=== PATIENT | female | born 1955 | race Caucasian/White ===

== ENCOUNTER 2020-03-13 00:42 | Inpatient (IN) ==
[2020-03-13] MEDS ORDERED: IOPAMIDOL 100 ML BOTTLE IV ONE (00:43)
[2020-03-13] MEDS ORDERED: ONDANSETRON 4 MG/2 ML VIAL IV ONE ×2 (02:17→12:14)
[2020-03-13] MEDS ORDERED: 0.9 % SODIUM CHLORIDE 1,000 ML IV ONE (02:17)
[2020-03-13] MEDS ORDERED: morphine 2 MG/ML VIAL ONE (02:48)
[2020-03-13 03:06] LABS: Basophils # (Auto) 0.03 K/mcL (0.00-0.20); Basophils % (Auto) 0.3 % (0.0-2.0); Eosinophils # (Auto) 0.05 K/mcL (0.00-0.70); Eosinophils % (Auto) 0.5 % (0.0-7.0); Hematocrit 43.2 % (36.0-48.0); Hemoglobin 13.8 g/dL (12.0-15.0); Lymphocytes # (Auto) 0.63 K/mcL (1.50-4.80); Lymphocytes % (Auto) 5.7 % (15.0-49.0); Mean Cell Volume 91.3 fL (80.0-100.0); Mean Corpuscular HGB Conc 31.9 g/dL (31.0-36.0); Mean Platelet Volume 10.9 fL (7.4-10.4); Monocytes # (Auto) 0.69 K/mcL (0.10-0.90); Monocytes % (Auto) 6.2 % (1.0-12.0); Neutrophils % (Auto) 87.3 % (38.0-78.0); Platelet Count 179 K/mcL (140-440); RBC 4.73 M/mcL (4.00-5.20); Red Cell Distribution Width 14.4 % (11.5-14.5); WBC 11.1 K/mcL (4.5-11.0)
[2020-03-13 03:47] LABS: POC Creatinine 0.9 mg/dL (0.6-1.2)
[2020-03-13 04:09] LABS: ALT/SGPT 19 U/L (<40); AST/SGOT 22 U/L (<32); Albumin 4.2 gm/dL (3.2-5.2); Albumin/Globulin Ratio 1.6 (1.0-2.3); Alkaline Phosphatase 67 U/L (39-117); Bilirubin,Total 0.5 mg/dL (0.1-1.0); Blood Urea Nitrogen 31 mg/dL (8-23); Calcium 9.7 mg/dL (8.6-10.4); Carbon Dioxide 25 mmol/L (22-30); Chloride 97 mmol/L (96-108); Globulin 2.6 gm/dL (2.2-3.7); Glomerular Filtration Rate 53; Glucose 147 mg/dL (70-105)
[2020-03-13] MEDS ORDERED: OMEPRAZOLE 20 MG CAPSULE PO ONE (04:32)
[2020-03-13] MEDS ORDERED: morphine 2 MG/ML VIAL IV ONE (04:49)
[2020-03-13] MEDS ORDERED: PHENobarb/HYOSCY/ATROPINE/SCOP 1 DOSE BOTTLE PO ONE (05:25)
--- NOTE | 2020-03-13 10:48 | Cat Scan Report ---
CLINICAL INFORMATION: Abdominal pain and distention COMPARISON: 04/28/[address] TECHNIQUE: Following enteric contrast, 80 cc of Isovue-[id number] were injected intravenously, and 60 seconds later, 0.625 mm helical slices were obtained from the mid heart through the subtrochanteric regions. Following reconstruction, 2.5 mm sagittal, coronal and axial reformatted images were processed and reviewed at bone, lung and soft tissue windows. Five minutes later, 0.625 mm helical slices were obtained from the mid heart through the kidneys and viewed at soft tissue windows.The exam was performed using radiation dose optimization techniques including, but not limited to, automated exposure control, adjustment of the mA and/or kV according to patient size and use of iterative reconstruction technique. FINDINGS: Lung bases show only subsegmental atelectasis in both posterior lower lobes. There are no effusions. The visualized heart is normal in size. Small pericardial effusion is new from the previous remote CT. Abdominal images show the gallbladder and bile ducts are normal: CBD is 5 mm. The liver, both adrenal glands, kidneys, spleen, pancreas and aorta, including aortic branches, are normal in size, configuration and attenuation without focal lesion. There is no free air, free fluid or adenopathy. The splenic vein is chronically thrombosed quite diminutive likely fibrotic. This resulted in moderate paraesophageal, perigastric and perisplenic varices. The portal vein is normal diameter. Pelvic images show urinary bladder is unremarkable. Hysterectomy and oophorectomy changes appreciated. Subtotal colectomy changes noted with retention of the distal sigmoid and rectum. In addition, partial small bowel resection is noted with primary anastomosis is seen within the the right mid abdomen region. The stomach, duodenum and proximal jejunum are moderately dilated to a transition point in the central mesenteric cavity. Presumably, they are is adhesion or stricture at the transition point. The distal small bowel is relatively decompressed. Interestingly, the retained rectosigmoid colonic segment is moderately dilated and fluid-filled likely reflecting poor peristalsis. Incidental note: 2 cm periampullary diverticulum in the descending duodenum Severe right hip degeneration is new from remote 2008 CT. There is also moderate degenerative change in the lower lumbar spine. IMPRESSION: 1. Subtotal colectomy and partial small bowel resection. Partial distal small bowel obstruction likely related to adhesions or stricture. The residual rectosigmoid segment of colon is moderately dilated and fluid-filled which likely reflects chronic atony. 2. Small pericardial effusion - new from the remote CT. 3. 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 This has resulted in mild periesophageal, perigastric and perisplenic varices. The portal and superior mesenteric veins are normal 4. Severe right hip degeneration - new from remote CT 12 years ago Interpreted and Authenticated by: Fredis Fonseca 03/13/20
--- NOTE | 2020-03-13 11:15 | Emergency Department Note ---
Abdominal Pain HPI General Chief Complaint: Abdominal Pain Stated Complaint: ABD. PAIN Time Seen by Provider: 03/13/20 01:55 Mode of arrival: EMS Limitations: physical limitation History of Present Illness HPI Narrative: Narrative: This 65-year-old female comes in with her . She has a long history of abdominal surgeries, colitis, and has had 10 days of pain which seems to have worsened. She has been on gabapentin. She had blood in her stools a few times and today vomited several times and had flecks of blood in her emesis. She has had some off and on for quite a while with redness in her stools. gives a history beginning 33 years ago of an ovarian ruptured followed by a ruptured colon followed by diagnosis of ulcerative colitis then hysterectomy. Was placed on prednisone for 15 years along with a sick call and then ended up with a colectomy. There was some internal bleeding as well and she ended up with an ostomy with an unusual variation of anastomoses which was reconnected. He reports that she just about starved to several times before the connections were reunited. She reports that she has become swollen in these past days in her abdomen and has become quite painful. She reports not taking anything since 4 PM. She believes that she vomited and passed out and may have vomited as many as 30 or 40 times which is quite unusual for her. She also has been very shaky. She has lost some weight of recent after going down on the gabapentin dose. She had gained up to 30 pounds while on the gabapentin. She reports that her temperatures have gone up from 97.4 normal to 98.8 which is high for her. She is on chronic narcotics including long-acting and breakthrough pain medication. Related Data Home Medications Medication Instructions Recorded Confirmed amitriptyline 10 mg tablet 10 mg PO QHS tab 07/17/15 07/17/15 clonazepam 2 mg tablet 2 mg PO BID PRN 07/17/15 07/17/15 diphenoxylate-atropine 2.5 1 tab PO ONCE tab 07/17/15 07/17/15 mg-0.025 mg tablet estradiol 0.5 mg tablet 0.5 mg PO QDAY 07/17/15 07/17/15 fluoxetine 60 mg tablet 60 mg PO QDAY 07/17/15 07/17/15 hydrocortisone 5 mg tablet 10 mg PO QAM tab 07/17/15 07/17/15 hydromorphone 4 mg tablet 4 mg PO Q4H PRN 07/17/15 07/17/15 [id number] 1 cap PO ONCE PRN cap 07/17/15 07/17/15 12,000-38,000-60,000 unit capsule,delayed rel nitroglycerin 0.4 mg sublingual 0.4 mg SUBLINGUAL Q5MIN PRN 07/17/15 07/17/15 tablet omeprazole 40 mg capsule,delayed 40 mg PO QDAY 07/17/15 07/17/15 release phenazopyridine 200 mg tablet 200 mg PO BID PRN tab 07/17/15 07/17/15 sumatriptan succinate 50 mg tablet 50 mg PO Q2H 07/17/15 07/17/15 trazodone 50 mg tablet 50 mg PO TID 07/17/15 07/17/15 Allergies Allergy/AdvReac Type Severity Reaction Status Date / Time metronidazole Allergy Unknown Verified 03/13/20 03:26 tramadol Allergy Unknown Verified 03/13/20 03:26 From OXYCONTIN Allergy Severe ANAPHYLACTI Uncoded 08/30/14 12:07 C CLASS: 08:24 - SULFONAMIDES Allergy Unknown Uncoded 08/30/14 12:07 (SYSTEMIC) DIABETIC FEATURES Allergy Unknown Uncoded 08/30/14 12:07 MSG/SULFATES Allergy Unknown Uncoded 08/30/14 12:07 No to Iodine Allergy Unknown Unknown Uncoded 08/30/14 12:07 No to Latex Allergy Unknown Uncoded 08/30/14 12:07 WHEAT/OATS -SMALL AMTS OK Allergy Unknown Uncoded 08/30/14 12:07 Review of Systems ROS ROS Narrative: Narrative: Denies chills. Has had some sweating. No sore throat or runny nose No chest pain Has a little bit of cough but she attributes this to the vomiting and choking. No shortness of breath. No dysuria or frequency Has some back pain in her kidney areas it seems burning in nature Has some dizziness. Has passed out several times Has chronic anxiety and depression. 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) Ulcerative colitis (Chronic) Right shoulder pain (Chronic) Fibromyalgia (Chronic) Degenerative joint disease (Chronic) Situational anxiety (Chronic) Diarrhea (Chronic) GERD (gastroesophageal reflux disease) (Chronic) Other adrenal hypofunction (Chronic) Interstitial cystitis (Chronic) Upper respiratory infection (Chronic) halfway prescription opiate use (Chronic) Skin lesion (Chronic) Tendonitis (Chronic) Medical History (Updated 03/13/20 @ 11:32 by Fletcher Baker DO) Degenerative joint disease (Chronic) Diarrhea (Chronic) Fibromyalgia (Chronic) GERD (gastroesophageal reflux disease) (Chronic) Glaucoma (Chronic) Interstitial cystitis (Chronic) halfway prescription opiate use (Chronic) 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) Osteoporosis (Chronic) Other adrenal hypofunction (Chronic) Right shoulder pain (Chronic) Situational anxiety (Chronic) Skin lesion (Chronic) Steroid dependence (Acute) Tendonitis (Chronic) Ulcerative colitis (Chronic) Upper respiratory infection (Chronic) Surgical History (Updated 07/17/15 @ 13:38 by Heidi Reyes) No pertinent past surgical history (Acute) Family History (Updated 07/17/15 @ 13:39 by Heidi Reyes) Malignant neoplasm of colon Mother Disorder of thyroid sister Social History Smoking Status: Never smoker Exam Narrative Narrative: Narrative: General Limitations: physical limitation General appearance: Present cachectic, nontoxic and other (Other times seems to be sleepy and/or with malaise and near the edge of tears because of pain.); Absent in no apparent distress Head Head: Present atraumatic and normocephalic Eye Eye: Present normal appearance and EOMI ENT ENT: Present normal oropharynx and mucous membranes moist Neck Neck: Present trachea midline and lymphadenopathy; Absent tenderness Chest Chest: Present symmetric chest wall rise Respiratory Respiratory: Present normal lung sounds bilaterally; Absent respiratory distress, rales/crackles, stridor and prolonged expiratory phase Cardiovascular Cardiovascular: Present regular rate and normal rhythm; Absent systolic murmur and diastolic murmur Adbominal Abdominal: Present soft, distention (mild-mod) and tenderness (moderate, diffuse); Absent rigidity Extremities Extremities: Present other (dorsalis pedal pulses: trace/4 right, 2/4 left. Color of her thighs and onto some of her legs is a medium bright purple color that is diffuse, nontender, no scabs or desquamation or bullae.); Absent calf tenderness Psychiatric Psychiatric: Present depressed, flat affect, serious, tearful and pleasant; Absent poor eye contact Skin Skin: Present warm (WNL) and dry Course Vital Signs Vital signs: Vital Signs Temperature 98.1 F 03/13/20 00:42 Pulse Rate 87 03/13/20 00:42 Respiratory Rate 20 03/13/20 00:42 Blood Pressure 124/63 03/13/20 00:42 Pulse Oximetry (%) 100 03/13/20 00:42 Temperature 98.1 F 03/13/20 00:42 Pulse Rate 84 03/13/20 10:46 Respiratory Rate 20 03/13/20 00:42 Blood Pressure 104/53 03/13/20 10:46 Pulse Oximetry (%) 92 03/13/20 10:46 MDM MDM Narrative Medical decision making narrative: Narrative: With her having history of multiple abdominal surgeries and now such significant additional abdominal pain with some bloating sensation and appearance will need to do imaging plus labs. See labs below. Not particularly remarkable, including lactic acid 1.0. CT had a long delay in coming back and there was a miscommunication and the imaging department. I spoke with the radiologist and he indicates that there is a possible obstruction in the mid jejunum and would like to recommend having her take oral contrast to help delineate this better. This will take a significant additional period of time it seems like it would be worth it considering her circumstances and presentation. So I went ahead and ordered this. Due to change in shift patient's care transferred to Dr. Paul Esparza. Lab Data Result diagrams: 03/13/20 02:29 03/13/20 02:29 Labs: Lab Results 03/13/20 03/13/20 03/13/20 Range/Units 02:29 02:29 02:30 WBC 11.1 H (4.5-11.0) K/mcL RBC 4.73 (4.00-5.20) M/mcL Hgb 13.8 (12.0-15.0) g/dL Hct 43.2 (36.0-48.0) % MCV 91.3 (80.0-100.0) fL MCH 29.2 (26.0-34.0) pg MCHC 31.9 (31.0-36.0) g/dL RDW 14.4 (11.5-14.5) % Plt Count 179 (140-440) K/mcL MPV 10.9 H (7.4-10.4) fL Neut % (Auto) 87.3 H (38.0-78.0) % Lymph % (Auto) 5.7 L (15.0-49.0) % Ellis % (Auto) 6.2 (1.0-12.0) % Eos % (Auto) 0.5 (0.0-7.0) % Baso % (Auto) 0.3 (0.0-2.0) % Lymph # (Auto) 0.63 L (1.50-4.80) K/mcL Ellis # (Auto) 0.69 (0.10-0.90) K/mcL Eos # (Auto) 0.05 (0.00-0.70) K/mcL Baso # (Auto) 0.03 (0.00-0.20) K/mcL Absolute Neutrophils 9.67 H (1.80-8.00) K/mcL VBG Lactic Acid 1.0 (0.5-2.0) mmol/L Sodium 139 (133-145) mmol/L Potassium 3.8 (3.3-5.1) mmol/L Chloride 97 (96-108) mmol/L Carbon Dioxide 25 (22-30) mmol/L Anion Gap 17.0 H (8.0-16.0) BUN 31 H (8-23) mg/dL Creatinine 1.1 (0.6-1.1) mg/dL POC Creatinine (0.6-1.2) mg/dL GFR Calculation 53 Glucose 147 H (70-105) mg/dL Calcium 9.7 (8.6-10.4) mg/dL Total Bilirubin 0.5 (0.1-1.0) mg/dL AST 22 (<32) U/L ALT 19 (<40) U/L Alkaline Phosphatase 67 (39-117) U/L Troponin T (<0.03) ng/mL C-Reactive Protein 0.60 (0.03-0.80) mg/dL Total Protein 6.8 (5.9-8.4) gm/dL Albumin 4.2 (3.2-5.2) gm/dL Globulin 2.6 (2.2-3.7) gm/dL Albumin/Globulin Ratio 1.6 (1.0-2.3) Lipase 9 (7-60) U/L 03/13/20 03/13/20 Range/Units 02:30 03:11 WBC (4.5-11.0) K/mcL RBC (4.00-5.20) M/mcL Hgb (12.0-15.0) g/dL Hct (36.0-48.0) % MCV (80.0-100.0) fL MCH (26.0-34.0) pg MCHC (31.0-36.0) g/dL RDW (11.5-14.5) % Plt Count (140-440) K/mcL MPV (7.4-10.4) fL Neut % (Auto) (38.0-78.0) % Lymph % (Auto) (15.0-49.0) % Ellis % (Auto) (1.0-12.0) % Eos % (Auto) (0.0-7.0) % Baso % (Auto) (0.0-2.0) % Lymph # (Auto) (1.50-4.80) K/mcL Ellis # (Auto) (0.10-0.90) K/mcL Eos # (Auto) (0.00-0.70) K/mcL Baso # (Auto) (0.00-0.20) K/mcL Absolute Neutrophils (1.80-8.00) K/mcL VBG Lactic Acid (0.5-2.0) mmol/L Sodium (133-145) mmol/L Potassium (3.3-5.1) mmol/L Chloride (96-108) mmol/L Carbon Dioxide (22-30) mmol/L Anion Gap (8.0-16.0) BUN (8-23) mg/dL Creatinine (0.6-1.1) mg/dL POC Creatinine 0.9 (0.6-1.2) mg/dL GFR Calculation Glucose (70-105) mg/dL Calcium (8.6-10.4) mg/dL Total Bilirubin (0.1-1.0) mg/dL AST (<32) U/L ALT (<40) U/L Alkaline Phosphatase (39-117) U/L Troponin T < 0.01 (<0.03) ng/mL C-Reactive Protein (0.03-0.80) mg/dL Total Protein (5.9-8.4) gm/dL Albumin (3.2-5.2) gm/dL Globulin (2.2-3.7) gm/dL Albumin/Globulin Ratio (1.0-2.3) Lipase (7-60) U/L Discharge Plan Patient/Caregiver Discharge Instructions Pt seen by GERIATRICS PHYSICIAN/PA only: No Clinical Impression: Abdominal pain, Hematemesis, Blood in feces, termination clerk prescription opiate use, Steroid dependence Patient Disposition: Still a Patient Condition: Undetermined Follow up with: Geraldine Brandt MD [Primary Care Provider] - Prescriptions: No Action hydrocortisone 5 mg tablet 10 mg PO QAM RF: 0 trazodone 50 mg tablet 50 mg PO TID RF: 0 phenazopyridine 200 mg tablet 200 mg PO BID PRNRF: 0 sumatriptan succinate [Imitrex] 50 mg tablet 50 mg PO Q2H RF: 0 diphenoxylate-atropine [Lomotil] 2.5-0.025 mg tablet 1 tab PO ONCE RF: 0 omeprazole 40 mg capsule,delayed release(DR/EC) 40 mg PO QDAY RF: 0 amitriptyline 10 mg tablet 10 mg PO QHS RF: 0 clonazepam 2 mg tablet 2 mg PO BID PRNRF: 0 nitroglycerin [Nitrostat] 0.4 mg tablet, sublingual 0.4 mg SUBLINGUAL Q5MIN PRNRF: 0 estradiol 0.5 mg tablet 0.5 mg PO QDAY RF: 0 hydromorphone [Dilaudid] 4 mg tablet 4 mg PO Q4H PRNRF: 0 [id number] [Creon] 12,000-38,000 -60,000 unit capsule,delayed release(DR/EC) 1 cap PO ONCE PRNRF: 0 fluoxetine 60 mg tablet 60 mg PO QDAY RF: 0
[2020-03-13] MEDS ORDERED: HYDROmorphone 0.5 MG/0.5 ML SYRINGE IV ONE (12:13)
--- NOTE | 2020-03-13 13:46 | Emergency Department Note ---
Abdominal Pain HPI General Chief Complaint: Abdominal Pain Stated Complaint: ABD. PAIN Time Seen by Provider: 03/13/20 01:55 Mode of arrival: EMS Limitations: physical limitation History of Present Illness HPI Narrative: 65-year-old female with past medical history significant for multiple abdominal surgeries presenting with chief complaint of nausea vomiting. Patient seen primarily by Dr. Baker who transitioned care to fl. At time of shift change patient with pending CT scan evaluation. Related Data Home Medications Medication Instructions Recorded Confirmed amitriptyline 10 mg tablet 10 mg PO QHS tab 07/17/15 07/17/15 clonazepam 2 mg tablet 2 mg PO BID PRN 07/17/15 07/17/15 diphenoxylate-atropine 2.5 1 tab PO ONCE tab 07/17/15 07/17/15 mg-0.025 mg tablet estradiol 0.5 mg tablet 0.5 mg PO QDAY 07/17/15 07/17/15 fluoxetine 60 mg tablet 60 mg PO QDAY 07/17/15 07/17/15 hydrocortisone 5 mg tablet 10 mg PO QAM tab 07/17/15 07/17/15 hydromorphone 4 mg tablet 4 mg PO Q4H PRN 07/17/15 07/17/15 bagwrf-jpnprrru-jxwstig 1 cap PO ONCE PRN cap 07/17/15 07/17/15 12,000-38,000-60,000 unit capsule,delayed rel nitroglycerin 0.4 mg sublingual 0.4 mg SUBLINGUAL Q5MIN PRN 07/17/15 07/17/15 tablet omeprazole 40 mg capsule,delayed 40 mg PO QDAY 07/17/15 07/17/15 release phenazopyridine 200 mg tablet 200 mg PO BID PRN tab 07/17/15 07/17/15 sumatriptan succinate 50 mg tablet 50 mg PO Q2H 07/17/15 07/17/15 trazodone 50 mg tablet 50 mg PO TID 07/17/15 07/17/15 Allergies Allergy/AdvReac Type Severity Reaction Status Date / Time metronidazole Allergy Unknown Verified 03/13/20 03:26 tramadol Allergy Unknown Verified 03/13/20 03:26 From OXYCONTIN Allergy Severe ANAPHYLACTI Uncoded 08/30/14 12:07 C CLASS: 08:24 - SULFONAMIDES Allergy Unknown Uncoded 08/30/14 12:07 (SYSTEMIC) DIABETIC FEATURES Allergy Unknown Uncoded 08/30/14 12:07 MSG/SULFATES Allergy Unknown Uncoded 08/30/14 12:07 No to Iodine Allergy Unknown Unknown Uncoded 08/30/14 12:07 No to Latex Allergy Unknown Uncoded 08/30/14 12:07 WHEAT/OATS -SMALL AMTS OK Allergy Unknown Uncoded 08/30/14 12:07 Review of Systems ROS ROS Narrative: Narrative: All systems ED: reviewed and negative except as stated. 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) Ulcerative colitis (Chronic) Right shoulder pain (Chronic) Fibromyalgia (Chronic) Degenerative joint disease (Chronic) Situational anxiety (Chronic) Diarrhea (Chronic) GERD (gastroesophageal reflux disease) (Chronic) Other adrenal hypofunction (Chronic) Interstitial cystitis (Chronic) Upper respiratory infection (Chronic) snf prescription opiate use (Chronic) Skin lesion (Chronic) Tendonitis (Chronic) Medical History (Updated 03/13/20 @ 13:46 by Jose Esparza MD) Degenerative joint disease (Chronic) Diarrhea (Chronic) Fibromyalgia (Chronic) GERD (gastroesophageal reflux disease) (Chronic) Glaucoma (Chronic) Interstitial cystitis (Chronic) 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) 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) Osteoporosis (Chronic) Other adrenal hypofunction (Chronic) Right shoulder pain (Chronic) Situational anxiety (Chronic) Skin lesion (Chronic) Steroid dependence (Acute) Tendonitis (Chronic) Ulcerative colitis (Chronic) Upper respiratory infection (Chronic) Surgical History (Updated 07/17/15 @ 13:38 by Heidi Reyes) No pertinent past surgical history (Acute) Family History (Updated 07/17/15 @ 13:39 by Heidi Reyes) Mother Malignant neoplasm of colon sister Disorder of thyroid Social History Smoking Status: Never smoker Exam Narrative Narrative: Narrative: General: Alert, interactive, appropriate Head: Atraumatic, normocephalic Eyes: Extraocular movements intact, sclera anicteric, no conjunctival injection Ears: Pinnae normal, no discharge Mouth: Oral mucosa moist, no acute swelling or evidence of infection Nares: No nasal discharge, patent bilaterally Neck: Trachea midline, full range of motion Chest: Symmetrical chest wall rise, breathing normally; nonlabored respirations Cardiovascular: Patient with excellent perfusion to the extremities; without tachycardia/bradycardia Abd: no apparent abdominal distention, no voluntary/involuntary guarding Skin: Patient without area of erythema, patient is without rash, no ascending lymphangitis or lymphadenopathy Extremities: Full range of motion joints, no obvious deformities Neuro: Alert, oriented x3, cranial nerves II through XII grossly intact, patient without lateralizing findings such as weakness, or abnormal reflexes Psychiatric: Normal affect, normal mood General Limitations: physical limitation Course Vital Signs Vital signs: Vital Signs Temperature 98.1 F 03/13/20 00:42 Pulse Rate 87 03/13/20 00:42 Respiratory Rate 20 03/13/20 00:42 Blood Pressure 124/63 03/13/20 00:42 Pulse Oximetry (%) 100 03/13/20 00:42 Temperature 98.1 F 03/13/20 00:42 Pulse Rate 88 03/13/20 13:31 Respiratory Rate 20 03/13/20 00:42 Blood Pressure 124/60 03/13/20 13:31 Pulse Oximetry (%) 91 03/13/20 13:31 MDM MDM Narrative Medical decision making narrative: Narrative: CT scan demonstrates partial small bowel obstruction. Pain control primarily with Dilaudid. Discussed the case with Dr. Miner general surgery who will accept the patient. Will hydrate control nausea and pain. Patient with out significant elevation of the white blood cell count a little elevated on the BUN to indicate some element of prerenal azotemia. Lab Data Result diagrams: 03/13/20 02:29 03/13/20 02:29 Labs: Lab Results 03/13/20 03/13/20 03/13/20 Range/Units 02:29 02:29 02:30 WBC 11.1 H (4.5-11.0) K/mcL RBC 4.73 (4.00-5.20) M/mcL Hgb 13.8 (12.0-15.0) g/dL Hct 43.2 (36.0-48.0) % MCV 91.3 (80.0-100.0) fL MCH 29.2 (26.0-34.0) pg MCHC 31.9 (31.0-36.0) g/dL RDW 14.4 (11.5-14.5) % Plt Count 179 (140-440) K/mcL MPV 10.9 H (7.4-10.4) fL Neut % (Auto) 87.3 H (38.0-78.0) % Lymph % (Auto) 5.7 L (15.0-49.0) % Nuckolls % (Auto) 6.2 (1.0-12.0) % Eos % (Auto) 0.5 (0.0-7.0) % Baso % (Auto) 0.3 (0.0-2.0) % Lymph # (Auto) 0.63 L (1.50-4.80) K/mcL Nuckolls # (Auto) 0.69 (0.10-0.90) K/mcL Eos # (Auto) 0.05 (0.00-0.70) K/mcL Baso # (Auto) 0.03 (0.00-0.20) K/mcL Absolute Neutrophils 9.67 H (1.80-8.00) K/mcL VBG Lactic Acid 1.0 (0.5-2.0) mmol/L Sodium 139 (133-145) mmol/L Potassium 3.8 (3.3-5.1) mmol/L Chloride 97 (96-108) mmol/L Carbon Dioxide 25 (22-30) mmol/L Anion Gap 17.0 H (8.0-16.0) BUN 31 H (8-23) mg/dL Creatinine 1.1 (0.6-1.1) mg/dL POC Creatinine (0.6-1.2) mg/dL GFR Calculation 53 Glucose 147 H (70-105) mg/dL Calcium 9.7 (8.6-10.4) mg/dL Total Bilirubin 0.5 (0.1-1.0) mg/dL AST 22 (<32) U/L ALT 19 (<40) U/L Alkaline Phosphatase 67 (39-117) U/L Troponin T (<0.03) ng/mL C-Reactive Protein 0.60 (0.03-0.80) mg/dL Total Protein 6.8 (5.9-8.4) gm/dL Albumin 4.2 (3.2-5.2) gm/dL Globulin 2.6 (2.2-3.7) gm/dL Albumin/Globulin Ratio 1.6 (1.0-2.3) Lipase 9 (7-60) U/L 03/13/20 03/13/20 Range/Units 02:30 03:11 WBC (4.5-11.0) K/mcL RBC (4.00-5.20) M/mcL Hgb (12.0-15.0) g/dL Hct (36.0-48.0) % MCV (80.0-100.0) fL MCH (26.0-34.0) pg MCHC (31.0-36.0) g/dL RDW (11.5-14.5) % Plt Count (140-440) K/mcL MPV (7.4-10.4) fL Neut % (Auto) (38.0-78.0) % Lymph % (Auto) (15.0-49.0) % Nuckolls % (Auto) (1.0-12.0) % Eos % (Auto) (0.0-7.0) % Baso % (Auto) (0.0-2.0) % Lymph # (Auto) (1.50-4.80) K/mcL Nuckolls # (Auto) (0.10-0.90) K/mcL Eos # (Auto) (0.00-0.70) K/mcL Baso # (Auto) (0.00-0.20) K/mcL Absolute Neutrophils (1.80-8.00) K/mcL VBG Lactic Acid (0.5-2.0) mmol/L Sodium (133-145) mmol/L Potassium (3.3-5.1) mmol/L Chloride (96-108) mmol/L Carbon Dioxide (22-30) mmol/L Anion Gap (8.0-16.0) BUN (8-23) mg/dL Creatinine (0.6-1.1) mg/dL POC Creatinine 0.9 (0.6-1.2) mg/dL GFR Calculation Glucose (70-105) mg/dL Calcium (8.6-10.4) mg/dL Total Bilirubin (0.1-1.0) mg/dL AST (<32) U/L ALT (<40) U/L Alkaline Phosphatase (39-117) U/L Troponin T < 0.01 (<0.03) ng/mL C-Reactive Protein (0.03-0.80) mg/dL Total Protein (5.9-8.4) gm/dL Albumin (3.2-5.2) gm/dL Globulin (2.2-3.7) gm/dL Albumin/Globulin Ratio (1.0-2.3) Lipase (7-60) U/L Discharge Plan Patient/Caregiver Discharge Instructions 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 by 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 OPERATOR/PA only: No Clinical Impression: Abdominal pain, snf prescription opiate use, Steroid dependence, Small bowel obstruction Patient Disposition: Xfer As Inpt ([facility]) Condition: Serious Follow up with: Geraldine Brandt MD [Primary Care Provider] - Prescriptions: No Action hydrocortisone 5 mg tablet 10 mg PO QAM RF: 0 trazodone 50 mg tablet 50 mg PO TID RF: 0 phenazopyridine 200 mg tablet 200 mg PO BID PRNRF: 0 sumatriptan succinate [Imitrex] 50 mg tablet 50 mg PO Q2H RF: 0 diphenoxylate-atropine [Lomotil] 2.5-0.025 mg tablet 1 tab PO ONCE RF: 0 omeprazole 40 mg capsule,delayed release(DR/EC) 40 mg PO QDAY RF: 0 amitriptyline 10 mg tablet 10 mg PO QHS RF: 0 clonazepam 2 mg tablet 2 mg PO BID PRNRF: 0 nitroglycerin [Nitrostat] 0.4 mg tablet, sublingual 0.4 mg SUBLINGUAL Q5MIN PRNRF: 0 estradiol 0.5 mg tablet 0.5 mg PO QDAY RF: 0 hydromorphone [Dilaudid] 4 mg tablet 4 mg PO Q4H PRNRF: 0 [id number] [Creon] 12,000-38,000 -60,000 unit capsule,delayed release(DR/EC) 1 cap PO ONCE PRNRF: 0 fluoxetine 60 mg tablet 60 mg PO QDAY RF: 0
[2020-03-13] MEDS ORDERED: HYDROmorphone 0.5 MG/0.5 ML SYRINGE IV PRN ×2 (13:50→18:03)
[2020-03-13] MEDS: 0.9 % SODIUM CHLORIDE 1,000 ML IV SCH ×2 (16:10→23:31)
[2020-03-13] MEDS: 0.9 % SODIUM CHLORIDE 10 ML SYRINGE IV SCH ×2 (16:11→22:05)
--- NOTE | 2020-03-13 17:55 | General Surg History&Physical ---
HPI History of Present Illness Patient information: Note initiated : 03/13/20 at 5:41 pm Service Date, if different from initiated Date: [] Patient: Caesar Rey 65 y/o F admitted on 03/13/20 for Abd Pain. Chief Complaint: [] Chief complaint: abdominal pain, nausea, and vomiting History of present illness: Ms. Rey is a 65 year old F admitted for suspected partial small bowel obstruction. The patient has a long history dating back to 2002 when she underwent subtotal colectomy with J-pouch for uncontrolled ulcerative colitis. She had a diverting proximal ileostomy which was later reversed. Since that time she's had 5 or 6 bowel movements per day. Over the last few weeks. Patient noted intermittent rectal bleeding. On Wednesday of this week. She had nausea, vomiting and bloody diarrhea. She has had liquid bowel movements However until yesterday ..she had increasing abdominal distention and crampy abdominal pain. This prompted her to come to the emergency room. She was noted to have a dilated and CT suggests dilated proximal small bowel with possible transition movement. Since admission the patient has had a large bowel movement and has passed a lot of flatus. She states she feels significantly better.Her abdominal distention is improved. Constitutional Constitutional: Present daytime sleepiness, fatigue, frequent falls, headache(s), lethargy, malaise, weakness and weight loss EENT Eyes: Absent loss of vision Ears: Absent tinnitus Nose, mouth and throat: Present dry mouth and headache(s) Cardiovascular Cardiovascular: Present dyspnea on exertion, palpatations and rapid heart rate; Absent chest pain Respiratory Respiratory: Absent cough and wheezing Gastrointestinal Gastrointestinal: Present abdominal pain, change in bowel habits, diarrhea, excessive flatus, fecal incontinence, heartburn, hematochezia, loose stools, nausea, tenesmus and vomiting Musculoskeletal Musculoskeletal: Present abnormal gait, arthralgias, back pain, deformity, limited range of motion, myalgias, numbness, stiffness and tingling Integumentary Integumentary: Present changing lesions, skin pain and unusual bruising Neurological Neurological: Present abnormal gait, numbness, restless legs, sensory deficit, tingling and weakness Psychiatric Psychiatric: Present abnormal sleep pattern, anxiety, depression, irritability a nd memory loss Endocrine Endocrine: Present fatigue Hematologic/Lymphatic Hematologic/Lymphatic: Absent easy bleeding, easy bruising and lymphadenopathy PFSH PFSH All Active Problems (Updated 03/13/20 @ 17:54 by Gabrielle Miner MD) Partial obstruction of small intestine (Acute) Abdominal pain (Acute) Small bowel obstruction (Acute) Glaucoma (Chronic) Steroid dependence (Acute) Osteoporosis (Chronic) 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) Ulcerative colitis (Chronic) Right shoulder pain (Chronic) Fibromyalgia (Chronic) Degenerative joint disease (Chronic) Situational anxiety (Chronic) Diarrhea (Chronic) GERD (gastroesophageal reflux disease) (Chronic) Other adrenal hypofunction (Chronic) Interstitial cystitis (Chronic) Upper respiratory infection (Chronic) 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) Skin lesion (Chronic) Tendonitis (Chronic) Medical History Degenerative joint disease (Chronic) Diarrhea (Chronic) Fibromyalgia (Chronic) GERD (gastroesophageal reflux disease) (Chronic) Glaucoma (Chronic) Interstitial cystitis (Chronic) 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) 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) Osteoporosis (Chronic) Other adrenal hypofunction (Chronic) Right shoulder pain (Chronic) Situational anxiety (Chronic) Skin lesion (Chronic) Steroid dependence (Acute) Tendonitis (Chronic) Ulcerative colitis (Chronic) Upper respiratory infection (Chronic) Surgical History No pertinent past surgical history (Acute) Family History Mother Malignant neoplasm of colon sister Disorder of thyroid Social History marital status: smoking status: Never smoker MEDS/ALLERGIES Home Medications and Allergies Home Medications Medication Instructions Recorded Confirmed Type amitriptyline 10 mg tablet 10 mg PO QHS tab 07/17/15 07/17/15 History clonazepam 2 mg tablet 2 mg PO BID PRN 07/17/15 07/17/15 History diphenoxylate-atropine 2.5 1 tab PO ONCE tab 07/17/15 07/17/15 History mg-0.025 mg tablet estradiol 0.5 mg tablet 0.5 mg PO QDAY 07/17/15 07/17/15 History fluoxetine 60 mg tablet 60 mg PO QDAY 07/17/15 07/17/15 History hydrocortisone 5 mg tablet 10 mg PO QAM tab 07/17/15 07/17/15 History hydromorphone 4 mg tablet 4 mg PO Q4H PRN 07/17/15 07/17/15 History gvqegf-mxomlrzr-jrwqlvm 1 cap PO ONCE PRN cap 07/17/15 07/17/15 History 12,000-38,000-60,000 unit capsule,delayed rel nitroglycerin 0.4 mg sublingual 0.4 mg SUBLINGUAL Q5MIN PRN 07/17/15 07/17/15 History tablet omeprazole 40 mg capsule,delayed 40 mg PO QDAY 07/17/15 07/17/15 History release phenazopyridine 200 mg tablet 200 mg PO BID PRN tab 07/17/15 03/13/20 History sumatriptan succinate 50 mg tablet 50 mg PO Q2H 07/17/15 07/17/15 History trazodone 50 mg tablet 50 mg PO TID 07/17/15 07/17/15 History Allergies Allergy/AdvReac Type Severity Reaction Status Date / Time metronidazole Allergy Mild Hives Verified 03/13/20 16:51 MSG/SULFATES Allergy Severe Difficulty Uncoded 03/13/20 16:51 Breathing WHEAT/OATS -SMALL AMTS OK Allergy Mild Rash Uncoded 03/13/20 16:51 Physical Examination Vital Signs Vital signs: Temp Pulse Resp BP Pulse Ox 96.5 F L 98 H 18 107/66 95 03/13/20 17:22 03/13/20 17:22 03/13/20 17:22 03/13/20 17:22 03/13/20 17:22 General physical appearance General physical exam: moderate distress, moderate pain and chronically ill Eyes Eye exam: PERRL and normal ocular movement ENT ENT exam: no hearing loss, no congestion and dentures Head Head exam IM: Present atraumatic, normal inspection and normocephalic Neck Neck exam: no masses, no bruits, trachea midline, no lymphadenopathy and no venous distension Cardiovascular Cardiovascular exam IM: Present normal rate and rhythm, JVD, RRR, +S1 and +S2 Respiratory Respiratory exam: normal respiratory effort and clear to auscultation Abdomen Abdomen: Present tender, bowel sounds (hypactive bowel sounds), surgical scars, guarding and distended Integumentary Integumentary: Present other (patient has chronic venous congestion, extending from her knees down to her feet) Neurologic Neurologic: Present normal coordination and normal sensation Musculoskeletal Musculoskeletal: Present other (abnormal gait; severe back deformity; operative changes of both feet) Psychiatric Psychiatric: Present oriented to time, oriented to person, oriented to place and speech is normal Results Labs Result diagrams: 03/13/20 02:29 03/13/20 02:29 Labs: Abnormal lab results 03/13/20 03/13/20 Range/Units 02:29 02:29 WBC 11.1 H (4.5-11.0) K/mcL MPV 10.9 H (7.4-10.4) fL Neut % (Auto) 87.3 H (38.0-78.0) % Lymph % (Auto) 5.7 L (15.0-49.0) % Lymph # (Auto) 0.63 L (1.50-4.80) K/mcL Absolute Neutrophils 9.67 H (1.80-8.00) K/mcL Anion Gap 17.0 H (8.0-16.0) BUN 31 H (8-23) mg/dL Glucose 147 H (70-105) mg/dL Diabetes panel 03/13/20 Range/Units 02:29 Sodium 139 (133-145) mmol/L Potassium 3.8 (3.3-5.1) mmol/L Chloride 97 (96-108) mmol/L Carbon Dioxide 25 (22-30) mmol/L BUN 31 H (8-23) mg/dL Creatinine 1.1 (0.6-1.1) mg/dL Glucose 147 H (70-105) mg/dL Calcium 9.7 (8.6-10.4) mg/dL AST 22 (<32) U/L ALT 19 (<40) U/L Alkaline Phosphatase 67 (39-117) U/L Total Protein 6.8 (5.9-8.4) gm/dL Albumin 4.2 (3.2-5.2) gm/dL Calcium panel 03/13/20 Range/Units 02:29 Calcium 9.7 (8.6-10.4) mg/dL Albumin 4.2 (3.2-5.2) gm/dL Pituitary panel 03/13/20 Range/Units 02:29 Sodium 139 (133-145) mmol/L Potassium 3.8 (3.3-5.1) mmol/L Chloride 97 (96-108) mmol/L Carbon Dioxide 25 (22-30) mmol/L BUN 31 H (8-23) mg/dL Creatinine 1.1 (0.6-1.1) mg/dL Glucose 147 H (70-105) mg/dL Calcium 9.7 (8.6-10.4) mg/dL Adrenal panel 03/13/20 Range/Units 02:29 Sodium 139 (133-145) mmol/L Potassium 3.8 (3.3-5.1) mmol/L Chloride 97 (96-108) mmol/L Carbon Dioxide 25 (22-30) mmol/L BUN 31 H (8-23) mg/dL Creatinine 1.1 (0.6-1.1) mg/dL Glucose 147 H (70-105) mg/dL Calcium 9.7 (8.6-10.4) mg/dL Total Bilirubin 0.5 (0.1-1.0) mg/dL AST 22 (<32) U/L ALT 19 (<40) U/L Alkaline Phosphatase 67 (39-117) U/L Total Protein 6.8 (5.9-8.4) gm/dL Albumin 4.2 (3.2-5.2) gm/dL All other labs normal. A/P Assessment and plan (1) Partial obstruction of small intestine: Status: Acute (2) Fibromyalgia: Status: Chronic (3) Situational anxiety: Status: Chronic (4) GERD (gastroesophageal reflux disease): Status: Chronic Qualifiers: Esophagitis presence: without esophagitis Qualified Code(s): K21.9 - Gastro-esophageal reflux disease without esophagitis (5) shelter prescription opiate use: Status: Chronic Narrative A/P Narrative: normal saline at 100 cc per hour. Reglan 10 mg IV every 6 hours RELISTOR 12 mg subcutaneous once daily Serum lactate in a.m. CBC and impatient panel in a.m. 2 view abdominal x-ray in the morning. Patient may have clear liquids. Time Spent With Patient Time: Total time spent is greater than 50% in coordination of care (as docu mented) at patient's floor/unit and/or counseling patient:
[2020-03-13] MEDS ORDERED: HYDROmorphone 1 MG/ML SYRINGE ONE (19:29)
[2020-03-13] MEDS ORDERED: clonazePAM 1 MG TABLET PO PRN (20:43)
[2020-03-13] MEDS: traZODone HCL 100 MG TABLET PO SCH (22:05)
[2020-03-13] MEDS: FLUoxetine HCL 20 MG CAPSULE PO SCH (22:05)
[2020-03-13] MEDS: METOCLOPRAMIDE 10 MG/2 ML VIAL IV SCH (22:05)
[2020-03-13] MEDS ORDERED: ACETAMINOPHEN 1,000 MG/100 ML BAG IV PRN (23:53)
[2020-03-13] MEDS ORDERED: diphenhydrAMINE 50 MG/ML VIAL IV PRN (23:54)
[2020-03-14] MEDS ORDERED: ACETAMINOPHEN 1,000 MG/100 ML BAG IV ONE (00:11)
[2020-03-14] MEDS ORDERED: diphenhydrAMINE 50 MG/ML VIAL ONE (00:12)
[2020-03-14] MEDS: 0.9 % SODIUM CHLORIDE 1,000 ML IV SCH ×4 (00:17→05:14)
[2020-03-14] MEDS: METOCLOPRAMIDE 10 MG/2 ML VIAL IV SCH ×4 (02:04→17:47)
[2020-03-14 05:48] LABS: Basophils # (Auto) 0.01 K/mcL (0.00-0.20); Basophils % (Auto) 0.5 % (0.0-2.0); Eosinophils # (Auto) 0.06 K/mcL (0.00-0.70); Hematocrit 34.6 % (36.0-48.0); Hemoglobin 10.4 g/dL (12.0-15.0); Lymphocytes # (Auto) 0.48 K/mcL (1.50-4.80); Lymphocytes % (Auto) 24.2 % (15.0-49.0); Mean Cell Volume 95.6 fL (80.0-100.0); Mean Corpuscular HGB Conc 30.1 g/dL (31.0-36.0); Mean Platelet Volume 10.7 fL (7.4-10.4); Monocytes # (Auto) 0.23 K/mcL (0.10-0.90); Monocytes % (Auto) 11.6 % (1.0-12.0); Neutrophils % (Auto) 60.7 % (38.0-78.0); Platelet Count 97 K/mcL (140-440); RBC 3.62 M/mcL (4.00-5.20); Red Cell Distribution Width 14.6 % (11.5-14.5)
[2020-03-14] MEDS ORDERED: HYDROmorphone 0.5 MG/0.5 ML SYRINGE ONE (05:54)
[2020-03-14 06:13] LABS: ALT/SGPT 13 U/L (<40); AST/SGOT 18 U/L (<32); Albumin 3.1 gm/dL (3.2-5.2); Albumin/Globulin Ratio 1.5 (1.0-2.3); Alkaline Phosphatase 49 U/L (39-117); Bilirubin,Direct < 0.2 mg/dL (<0.3); Bilirubin,Total 0.5 mg/dL (0.1-1.0); Blood Urea Nitrogen 16 mg/dL (8-23); Carbon Dioxide 24 mmol/L (22-30); Chloride 108 mmol/L (96-108); Globulin 2.1 gm/dL (2.2-3.7); Glomerular Filtration Rate 77; Glucose 112 mg/dL (70-105); Lactate Dehydrogenase 159 U/L (135-225); Phosphorous 2.8 mg/dL (2.5-4.5); Triglycerides 46 mg/dL (<150); Uric Acid 2.7 mg/dL (2.5-8.0)
[2020-03-14] MEDS: 0.9 % SODIUM CHLORIDE 10 ML SYRINGE IV SCH ×4 (06:34→20:49)
[2020-03-14] MEDS: traZODone HCL 50 MG TABLET PO SCH ×2 (08:45→14:41)
[2020-03-14] MEDS: METHYLNALTREXONE BROMIDE 12 MG/0.6 ML SYRINGE SQ SCH (08:45)
[2020-03-14] MEDS ORDERED: FLU VACC QS2020-21(6MOS UP)/PF 60 MCG/0.5 ML SYRINGE IM ONE (10:00)
[2020-03-14] MEDS ORDERED: PNEUMOCOCCAL 23-VAL P-SAC VAC 0.5 ML SYRINGE IM ONE (10:00)
[2020-03-14] MEDS: HYDROmorphone 0.5 MG/0.5 ML SYRINGE IV PRN ×5 (10:25→22:58)
[2020-03-14] MEDS: SUMAtriptan SUCCINATE 50 MG TABLET PO PRN ×2 (14:38→16:37)
[2020-03-14] MEDS: HYDROCORTISONE 10 MG TABLET PO SCH (14:38)
--- NOTE | 2020-03-14 15:40 | General Surgery Progress Note ---
SUBJECTIVE Subjective Patient information: Note initiated : 03/14/20 at 3:34 pm Service Date, if different from initiated Date: [] Patient: Caesar Rey 65 y/o F admitted on 03/13/20 for Abd Pain. Chief Complaint: [] Interval history: patient feels better however she is very emotional. She had very large bowel movement yesterday but none since then. She does not remember if she has had flatus. She has nausea but relates that to migraine headache. Her white blood count is 2; hemoglobin 10.4, platelets 97,000. Constitutional Vitals: Vital Signs Temp Pulse Resp BP Pulse Ox 98.2 F 98 H 16 108/64 97 03/14/20 12:00 03/14/20 12:00 03/14/20 12:00 03/14/20 12:00 03/14/20 12:00 Period Temp Pulse Resp BP Sys/Orozco Pulse Ox Last 24 Hr 96.5 F-98.6 F 85-102 12-18 78-108/48-66 93-99 Intake and Output 03/14/20 03/14/20 03/14/20 05:59 13:59 21:59 Intake Total 2136 Output Total 1 Balance 2135 Weight 130 lb 14.4 oz 130 lb 14.4 oz Patient Weight 03/15/20 05:59 Weight 130 lb 14.4 oz Intake & Output: Intake & Output 03/14/20 03/14/20 03/14/20 05:59 13:59 21:59 Intake Total 2136 Output Total 1 Balance 2135 Weight 130 lb 14.4 oz 130 lb 14.4 oz Intake: IV 2016 Sodium Chloride 0.9% 1,000 ml @ 1916 999 mls/hr IV .Q1H1M [facility] Rx#: [id number] OFIRMEV 1,000 mg In 100 ml @ 0 100 mls/hr IV .STK-MED ONE Rx#: [id number] Oral 120 Output: # of times incontinent of urine 1 Other: Urine Appearance Straight Clear Clear Urine Color Straight Dark Yellow Dark Yellow Urine Odor Straight Normal Stool Size Moderate Stool Color Yellow White Stool Consistency Liquid Watery # Voids 1 # Bowel Movements 1 # of times incontinent of 1 Bowels Head Head exam: Present atraumatic, normal inspection and normocephalic Eye Eye exam: Present EOMI Pupils: Present normal accommodation and PERRL ENT ENT exam: Present normal exam and normal oropharynx Neck Neck exam: Present full ROM Respiratory Respiratory exam: Present normal respiratory exam and CTAB; Absent rales, rhonchi and wheezes Cardiovascular Cardiovascular exam: Present normal rate and rhythm, RRR, +S1 and +S2; Absent JVD GI/Abdominal GI/Abdominal exam: Present soft, distended (moderate distention with mild tenderness; hyperactive bowel sounds), hyperactive bowel sounds and tenderness Extremities Exam Extremities exam: Present tenderness Additional comments: the extensive venous congestion of her lower extremities is significantly improved compared to yesterday and the tenderness is much better Neurological Exam Neurological exam: Present abnormal gait and oriented X3 Psychiatric Psychiatric exam: Present agitated, anxious and depressed Skin Additional comments: hyperesthesia of the skin of upper and lower extremities of questionable etiology A/P Assessment and plan (1) Adynamic ileus: Status: Acute (2) Abdominal pain: Status: Acute Qualifiers: Abdominal location: generalized Qualified Code(s): R10.84 - Generalized abdominal pain (3) Situational anxiety: Status: Chronic (4) Diarrhea: Status: Chronic Qualifiers: Diarrhea type: due to malabsorption Qualified Code(s): K90.9 - Intestinal malabsorption, unspecified; R19.7 - Diarrhea, unspecified (5) Migraine headache: Status: Acute Qualifiers: Migraine type: without aura Status migrainosus presence: without status migrainosus Intractability: not intractable Qualified Code(s): G43.009 - Migraine without aura, not intractable, without status migrainosus Narrative A/P Narrative: 2 view abdominal x-rays. Continue to monitor status. Probable discharge in 1-2 days Time Spent With Patient Time: Total time spent is greater than 50% in coordination of care (as documented) at patient's floor/unit and/or counseling patient:
--- NOTE | 2020-03-14 16:09 | XRay Report ---
CLINICAL INFORMATION: adynamic ileus COMPARISON: 02/01/2009 FINDINGS: The stomach proximal mid small bowel are moderately dilated compatible partial small bowel obstruction. Subtotal colectomy is acknowledged. There is no free air or soft tissue mass. The right hip degeneration seen as before IMPRESSION: Partial small bowel obstruction Interpreted and Authenticated by: Fredis Fonseca 03/14/20
[2020-03-14] MEDS: ONDANSETRON 4 MG/2 ML VIAL IV PRN (18:46)
[2020-03-14] MEDS: FLUoxetine HCL 20 MG CAPSULE PO SCH (19:17)
[2020-03-14] MEDS: SUCRALFATE 1 GM TABLET PO SCH (19:45)
[2020-03-14] MEDS: traZODone HCL 100 MG TABLET PO SCH (20:40)
[2020-03-14] MEDS ORDERED: ATORVASTATIN 40 MG TABLET PO SCH (21:00)
[2020-03-15] MEDS: METOCLOPRAMIDE 10 MG/2 ML VIAL IV SCH ×3 (00:10→11:36)
[2020-03-15] MEDS: clonazePAM 1 MG TABLET PO PRN ×2 (00:30→14:14)
[2020-03-15] MEDS: HYDROmorphone 0.5 MG/0.5 ML SYRINGE IV PRN ×3 (02:52→11:33)
[2020-03-15] MEDS: 0.9 % SODIUM CHLORIDE 10 ML SYRINGE IV SCH ×2 (05:20→12:23)
[2020-03-15] MEDS: ONDANSETRON 4 MG/2 ML VIAL IV PRN (05:20)
[2020-03-15] MEDS: SUMAtriptan SUCCINATE 50 MG TABLET PO PRN (05:23)
[2020-03-15] MEDS: SUCRALFATE 1 GM TABLET PO SCH ×2 (07:04→11:35)
[2020-03-15] MEDS: HYDROCORTISONE 10 MG TABLET PO SCH (07:04)
[2020-03-15] MEDS: LIPASE/PROTEASE/AMYLASE 1 CAP CAPSULE PO SCH ×2 (07:08→11:38)
[2020-03-15] MEDS ORDERED: OMEPRAZOLE 20 MG CAPSULE PO SCH (07:30)
[2020-03-15] MEDS: traZODone HCL 50 MG TABLET PO SCH ×2 (08:39→15:49)
[2020-03-15] MEDS: METHYLNALTREXONE BROMIDE 12 MG/0.6 ML SYRINGE SQ SCH (08:49)
[2020-03-15 14:18] LABS: Basophils # (Auto) 0.01 K/mcL (0.00-0.20); Basophils % (Auto) 0.5 % (0.0-2.0); Eosinophils # (Auto) 0.09 K/mcL (0.00-0.70); Eosinophils % (Auto) 4.1 % (0.0-7.0); Hematocrit 34.3 % (36.0-48.0); Hemoglobin 10.5 g/dL (12.0-15.0); Lymphocytes # (Auto) 0.58 K/mcL (1.50-4.80); Lymphocytes % (Auto) 26.4 % (15.0-49.0); Mean Cell Volume 96.9 fL (80.0-100.0); Mean Corpuscular HGB Conc 30.6 g/dL (31.0-36.0); Mean Platelet Volume 11.2 fL (7.4-10.4); Monocytes # (Auto) 0.28 K/mcL (0.10-0.90); Monocytes % (Auto) 12.7 % (1.0-12.0); Neutrophils % (Auto) 56.3 % (38.0-78.0); Platelet Count 93 K/mcL (140-440); RBC 3.54 M/mcL (4.00-5.20); Red Cell Distribution Width 14.4 % (11.5-14.5); WBC 2.2 K/mcL (4.5-11.0)
--- NOTE | 2020-03-15 15:54 | Discharge Summary ---
Discharge Provider Provider Patient information: Note initiated : 03/15/20 at 3:42 pm Service Date, if different from initiated Date: [] Patient: Caesar Rey 65 y/o F admitted on 03/13/20 for Abd Pain. Chief Complaint: [] Date of admission: 03/13/20 15:01 Discharge date: 03/15/20 Primary care physician: Geraldine Brandt Admitting clinician: Gabrielle Miner Attending physician on admission: Gabrielle Miner Consults: 03/13/20 Consult to Physician [CONS] Stat Comment: Consulting Provider: Gabrielle Miner Reason For Exam: Physician to Consult Attending physician on discharge: Gabrielle Miner Discharging clinician: Gabrielle Miner COURSE Hospital Course Hospital course: 65-year-old female with a complicated history of intestinal problems dating back over 15 years. She has a long history of ulcerative colitis and was finally treated with subtotal colectomy with J-pouch rectal anastomosis in 2002. She has had problems with intermittent chronic diarrhea since that time. She's never had a bowel obstruction. The patient developed severe osteoporosis and multiple compression fractures of her thoracolumbar spin e, LEADING TO CHRONIC PAIN. She also has significant psychological and emotional difficulty related to her pain. She uses hydromorphone 4 mg 6 times daily for pain control and is on multiple medications including clonazepam, fluoxetine, trazodone. She presents with abdominal distention and nausea. CT suggested partial intestinal obstruction. However, she had liquid stool throughout her small bowel and into the J-pouch and rectum. She was admitted and had very large bowel movements and flatus shortly after admission. She was treated with RELISTOR for her opioid-induced ileus and was given IV hydromorphone at reduced dose. She was also given metoclopramide. In the interim, she has had multiple large bowel movements up to 800 cc and has passed copious amounts of flatus. She has tolerated diet without difficulty and has not had nausea or vomiting. She is stable for discharge. The patient has major difficulty with chronic severe pain and has severe opioid dependency. I discussed her with Dr. Holcomb, and he has agreed to meet with her and discuss intrathecal catheter with pain pump for pain control. An appointment will be made as an outpatient. Discharge diagnosis: opioid-induced intestinal ileus Secondary discharge diagnosis: chronic opioid dependency. Severe back pain related to vertebral compression fractures Reason for admission: none Pertinent studies/significant findings: none Complications: none Time Spent with Patient Time attestation: Total time spent providing and/or coordinating discharge services: Physical Examination Vital Signs Vital signs: Temp Pulse Resp BP Pulse Ox 98.3 F 91 H 16 107/50 94 03/15/20 12:00 03/15/20 12:00 03/15/20 12:00 03/15/20 12:00 03/15/20 12:00 General physical appearance General physical exam: moderate distress, moderate pain and chronically ill Eyes Eye exam: PERRL and normal ocular movement ENT ENT exam: no hearing loss, no congestion and dentures Head Head exam IM: Present atraumatic, normal inspection and normocephalic Neck Neck exam: no masses, no bruits, trachea midline, no lymphadenopathy and no venous distension Cardiovascular Cardiovascular exam IM: Present normal rate and rhythm, JVD, RRR, +S1 and +S2 Respiratory Respiratory exam: normal respiratory effort and clear to auscultation Abdomen Abdomen: Present tender, bowel sounds (hypactive bowel sounds), surgical scars, guarding and distended Integumentary Integumentary: Present other (patient has chronic venous congestion, extending from her knees down to her feet) Neurologic Neurologic: Present normal coordination and normal sensation Musculoskeletal Musculoskeletal: Present other (abnormal gait; severe back deformity; operative changes of both feet) Psychiatric Psychiatric: Present oriented to time, oriented to person, oriented to place and speech is normal Discharge Plan Patient/Caregiver Discharge Instructions Activity: increase activity as tolerated and resume usual activities as tolerated Diet: Regular Diet Prescriptions: No Action hydrocortisone 5 mg tablet 10 mg PO QAM RF: 0 trazodone 50 mg tablet 50 mg PO TID RF: 0 phenazopyridine 200 mg tablet 200 mg PO BID PRN (Reason: Urinary Retention) RF: 0 sumatriptan succinate [Imitrex] 50 mg tablet 50 mg PO Q2H RF: 0 omeprazole 40 mg capsule,delayed release(DR/EC) 40 mg PO QDAY RF: 0 clonazepam 2 mg tablet 2 mg PO BID PRN (Reason: Pain, Mild) RF: 0 nitroglycerin [Nitrostat] 0.4 mg tablet, sublingual 0.4 mg SUBLINGUAL Q5MIN PRN (Reason: Chest Pain) RF: 0 hydromorphone [Dilaudid] 4 mg tablet 4 mg PO Q4H PRN (Reason: Pain) RF: 0 fluoxetine 60 mg tablet 60 mg PO QDAY RF: 0 Creon 12,000 unit capsule 1 cap PO TID RF: 0 atorvastatin tablet 40 mg PO QHS RF: 0 sucralfate tablet See Rx Instructions .ROUTE .COMPLEX RF: 0 Follow Up Plan Follow up with: Geraldine Brandt MD [Primary Care Provider] - Patient Disposition: Home, Self-Care Prognosis: Good Rehab Potential: Good I certify that the patient requires SNF services: No Overall status at discharge: patient is progressing back to baseline Discharge Orders: Discharge Order (Routine); Ordered 03/15/20 Ordered By: Gabrielle Miner Pending Pending Pending: Resuscitation Status Full Code Diet Clear Liquid Diet Start WedMar 14 132 Lipase/Protease/Amylase (Creon) 2 cap PO TIDCC [facility] Last Admin: 03/15/20 11:38 Dose: 2 cap Documented by: Admin: 03/15/20 07:08 Dose: 2 cap Documented by: HUSEYIN Atorvastatin Calcium (Lipitor) 40 mg PO [facility] Last Admin: 03/14/20 20:40 Dose: 40 mg Documented by: TASIA Clonazepam (Klonopin) 1 - 2 mg PO DAILYP PRN PRN Reason: Anxiety Last Admin: 03/15/20 14:14 Dose: 1 mg Documented by: Admin: 03/15/20 00:30 Dose: 1 mg Documented by: TASIA Diphenhydramine HCl (Benadryl) 25 mg IV Q4HP PRN PRN Reason: Allergic Symptoms Last Admin: 03/14/20 03:45 Dose: 25 mg Documented by: MANOLO Fluoxetine HCl (Prozac) 60 mg PO [facility] Last Admin: 03/14/20 19:17 Dose: 60 mg Documented by: Admin: 03/13/20 22:05 Dose: 60 mg Documented by: MANOLO [facility] Admin: 03/15/20 07:04 Dose: 10 mg Documented by: Admin: 03/14/20 14:38 Dose: 10 mg Documented by: TOREY Hydromorphone HCl (Dilaudid) 0.5 - 1 mg IV Q2HP PRN; Protocol PRN Reason: Per Pain Protocol Last Admin: 03/15/20 11:33 Dose: 0.5 mg Documented by: Admin: 03/15/20 05:24 Dose: 0.5 mg Documented by: Admin: 03/15/20 02:52 Dose: 0.5 mg Documented by: Admin: 03/14/20 22:58 Dose: 0.5 mg Documented by: Admin: 03/14/20 20:39 Dose: 0.5 mg Documented by: Admin: 03/14/20 18:45 Dose: 0.5 mg Documented by: Admin: 03/14/20 16:00 Dose: 0.5 mg Documented by: Admin: 03/14/20 10:25 Dose: 0.5 mg Documented by: TOREY Methylnaltrexone [place] (Relistor) 12 mg SQ DAILY [facility] Stop: 03/16/20 09:01 Last Admin: 03/15/20 08:49 Dose: 12 mg Documented by: Admin: 03/14/20 08:45 Dose: 12 mg Documented by: TOREY Metoclopramide HCl (Reglan) 10 mg IV Q6 [facility] Last Admin: 03/15/20 11:36 Dose: 10 mg Documented by: Admin: 03/15/20 05:27 Dose: 10 mg Documented by: Admin: 03/15/20 00:10 Dose: 10 mg Documented by: Admin: 03/14/20 17:47 Dose: 10 mg Documented by: Admin: 03/14/20 11:57 Dose: 10 mg Documented by: Admin: 03/14/20 05:57 Dose: 10 mg Documented by: Admin: 03/14/20 02:04 Dose: 10 mg Documented by: Admin: 03/13/20 22:05 Dose: 10 mg Documented by: MANOLO Omeprazole (Prilosec) 40 mg PO ACB [facility] Last Admin: 03/15/20 07:04 Dose: 40 mg Documented by: HUSEYIN Ondansetron HCl (Zofran) 4 mg IV Q6HP PRN PRN Reason: Nausea And Vomiting Last Admin: 03/15/20 05:20 Dose: 4 mg Documented by: Admin: 03/14/20 18:46 Dose: 4 mg Documented by: TASIA Sodium Chloride (Saline Flush) 10 ml IV Q8 [facility] Last Admin: 03/15/20 12:23 Dose: Not Given Documented by: Admin: 03/15/20 05:20 Dose: 10 ml Documented by: Admin: 03/14/20 20:49 Dose: 10 ml Documented by: Admin: 03/14/20 18:45 Dose: 10 ml Documented by: Admin: 03/14/20 14:38 Dose: 10 ml Documented by: Admin: 03/14/20 06:34 Dose: Not Given Documented by: Admin: 03/13/20 22:05 Dose: 10 ml Documented by: Admin: 03/13/20 16:11 Dose: Not Given Documented by: TOREY Sucralfate (Carafate) 1 gm PO 1HRACHS [facility] Last Admin: 03/15/20 11:35 Dose: 1 gm Documented by: Admin: 03/15/20 07:04 Dose: 1 gm Documented by: Admin: 03/14/20 19:45 Dose: 1 gm Documented by: TASIA Sumatriptan Succinate (Imitrex) 50 mg PO PRN PRN PRN Reason: Migraine Headache Last Admin: 03/15/20 05:23 Dose: 50 mg Documented by: Admin: 03/14/20 16:37 Dose: 50 mg Documented by: Admin: 03/14/20 14:38 Dose: 50 mg Documented by: TOREY Trazodone HCl (Desyrel) 100 mg PO HS [facility] Last Admin: 03/14/20 20:40 Dose: 100 mg Documented by: Admin: 03/13/20 22:05 Dose: 100 mg Documented by: MANOLO Trazodone HCl (Desyrel) 50 mg PO BID@0900,1500 [facility] Last Admin: 03/15/20 08:39 Dose: 50 mg Documented by: Admin: 03/14/20 14:41 Dose: 50 mg Documented by: Admin: 03/14/20 08:45 Dose: Not Given Documented by: TOREY Shift Summary 12/18/20 04:09 Shift Summary by Elise Ayon The patient is alert and oriented times four, she is able to clearly make her needs known and was pleasant and cooperative with ADL assist and transfers out of bed this shift to the commode. She was incontinent twice of liquid/watery brown stool and had a large watery stool via the commode once, pull-ups in place for functional stool incontinence and stress urinary incontinence. Stafford was removed last evening after patient adamantly refused to have it remain insitu, order received to D/C Stafford and resume home medications as requested by patient. She was medicated with Dilaudid 0.5 mg IV this shift and can have 0.5-1 mg every 2 hours as needed, she verbalized chronic back and right hip/knee pain and acute abdominal pain 6-11/05. She was given Klonopin once per patients request, VSS and B/P within 15 points of her baseline with MAP greater than 70, RA, afebrile. Discoloration to bilateral lower extremities and buttocks from fall and poor mobility/circulation per patients report, ATR system and heelzup utilized during shift for positioning and requires turn schedule and 1 person assist for bed mobility and pivot transfers. Medicated once at start of shift for nausea with Zofran and this palliated her symptoms well, tolerating a clear liquid diet well, new IV to her right forearm 22 gauge SL. Plan is to discharge home with spouse and states she has adequate support at home, will update shift summary report at bedside. Initialized on 03/15/20 04:09 - END OF NOTE
== END 2020-03-15 16:25 | disposition home or self-care (01) | DRG 389 ==
LOC: ED 00:42 → MEDSUR 15:00
PROVIDERS: ADMIT Family Medicine Adult Medicine; ATTEND Family Medicine Adult Medicine